=== PATIENT | male | born 1995 | race Caucasian/White ===

== ENCOUNTER 2019-01-03 07:38 | Emergency (ER) | payer MEDICAID ==
[~2019-01-03] VITALS: Ht 162.6 cm; Wt 53.6 kg
[2019-01-03 07:46] VITALS: Ht 162.6 cm; Wt 53.6 kg
[2019-01-03] MEDS ORDERED: NOVOLOG100 UNIT/1 SC (07:48)
[2019-01-03] MEDS ORDERED: LANTUS INSULIN10 ML SQ (07:48)
[2019-01-03 09:31] VITALS: BP 110/75
== END 2019-01-03 10:28 ==
LOC: D.ER 07:38
DX: E11.649 Type 2 diabetes mellitus with hypoglycemia without coma (principal); T43.595A Adverse effect of other antipsychotics and neuroleptics, initial encounter; Y92.019 Unspecified place in single-family (private) house as the place of occurrence of the external cause